=== PATIENT | female | born 1955 | race Caucasian/White ===

== ENCOUNTER 2022-01-05 09:39 | Outpatient (CLI) | payer BC | END 2022-01-05 09:40 | disposition home or self-care (01) | LOC: CSHLAB 09:39 | PROVIDERS: ATTEND Internal Medicine | DX: Z20.822 Contact with and (suspected) exposure to COVID-19 (principal) | CPT/HCPCS: 87811 ==

== ENCOUNTER 2022-01-09 12:25 | Outpatient (CLI) | payer BC | END 2022-01-09 12:26 | disposition home or self-care (01) | LOC: CSHCP 12:25 | PROVIDERS: ATTEND Internal Medicine | DX: R05.2 Subacute cough (principal) | CPT/HCPCS: 94060; 94726; 94729; 94760 ==

== ENCOUNTER 2024-12-16 12:05 | Outpatient (CLI) | payer MEDICARE ==
[2024-12-16 14:05] LABS: Hematocrit 37.8 % (34.9-44.5); Hemoglobin 11.5 g/dL (12.0-15.5); Mean Corpuscular Hemoglobin 24.3 pg (27.0-33.0); Mean Corpuscular Volume 79.7 fL (81.6-98.3); Platelet Count 261 10x3/uL (150-450); Red Blood Cell (RBC) Count 4.74 10x6/uL (3.90-5.03); White Blood Cell (WBC) Count 5.42 10x3/uL (3.5-10.5)
[2024-12-16 14:18] LABS: Anion Gap 16 mmol/L (10-20); BUN (Urea Nitrogen) 7 mg/dL (9.8-20.1); Calc. Creatinine Clearance 0 mL/min (70-130); Calcium 9.0 mg/dL (7.8-10.44); Carbon Dioxide 21 mmol/L (23-31); Chloride 99 mmol/L (98-107); Glucose 108 mg/dL (80-115); Potassium 4.6 mmol/L (3.5-5.1); Sodium 131 mmol/L (136-145)
== END 2024-12-16 12:06 | disposition home or self-care (01) ==
LOC: CSHLAB 12:05
PROVIDERS: ATTEND Surgery
DX: Z01.818 Encounter for other preprocedural examination (principal); R92.8 Other abnormal and inconclusive findings on diagnostic imaging of breast
CPT/HCPCS: 80048; 85027; 93005; 93010